=== PATIENT | female | born 2000 | race African-American/Black ===

== ENCOUNTER 2022-06-12 21:39 | Inpatient (IN) | payer OTHER ==
[2022-06-12] MEDS ORDERED: Acetaminophen 650 MG Suppository PR PRN (23:26)
[2022-06-12] MEDS ORDERED: Ondansetron ODT 4 MG TAB PO PRN (23:26)
[2022-06-12] MEDS ORDERED: Acetaminophen 325 MG TAB PO PRN (23:26)
[2022-06-13] MEDS ORDERED: traMADol HCl 50 MG TAB PO PRN (00:28)
[2022-06-13] MEDS ORDERED: Fentanyl 100 MCG/2 ML VIAL SLOW IVP PRN (00:29)
[2022-06-13] MEDS: fentaNYL 50 mcg/mL 1 mL Vial SLOW IVP PRN ×2 (00:55→05:13)
[2022-06-13] MEDS: metroNIDAZOLE 500 MG in Premix Bag 1 BAG IVPB SCH ×3 (02:56→19:50)
[2022-06-13] MEDS ORDERED: cefTRIAXone\\ROCEPHIN 1 GM in Sodium Chloride 0.9% 100 ML IVPB SCH (03:00)
[2022-06-13 05:53] LABS: #Lymphocytes 1.2 thou/uL (1.20-3.40); #Monocytes 1.5 thou/uL (0.11-0.59); %Basophils 0.1 % (0.0-1.0); %Eosinophils 0.4 % (0.0-10.0); %Monocytes 12.9 % (0.0-10.0); %Neutrophils 76.7 % (42.0-75.0); Hemoglobin 11.4 g/dL (12.0-16.0); Mean Corpuscular HGB CONC 32.1 g/dL (32.0-36.0); Mean Corpuscular Hemoglobin 28.8 pg (27.0-31.0); Mean Corpuscular Volume 89.9 fl (78.0-98.0); Mean Platelet Volume 13.7 fL (7.4-10.4); Platelet Count 38 10x3/uL (130-400); RBC Distribution Width 11.7 % (11.5-14.5); Red Blood Cell (RBC) Count 3.94 mill/uL (4.20-5.40); White Blood Cell (WBC) Count 11.7 10x3/uL (4.8-10.8)
[2022-06-13 06:09] LABS: Anion Gap 11 mmol/L (10-20); BUN (Urea Nitrogen) Less than 4 mg/dL (7.0-18.7); Calc. Creatinine Clearance 131 mL/min (70-130); Calcium 7.7 mg/dL (7.8-10.44); Carbon Dioxide 19 mmol/L (22-29); Chloride 110 mmol/L (98-107); Estimated GFR 129; Glucose 113 mg/dL (70-105); Potassium 4.1 mmol/L (3.5-5.1); Sodium 136 mmol/L (136-145)
[2022-06-13] MEDS ORDERED: oxyCODONE 5 MG TAB PO PRN (11:23)
[2022-06-13] MEDS ORDERED: Morphine 2 MG/ML VIAL SLOW IVP SCH (11:30)
[2022-06-13] MEDS: Lactated Ringer's 1,000 ML IV SCH ×2 (11:36→21:32)
[2022-06-13 16:14] LABS: Campy jejuni + coli by PCR Negative (Negative); STEC Shiga Toxin 1+2 Negative (Negative); Salmonella spp. by PCR Negative (Negative); Shigella spp + EIEC by PCR Negative (Negative)
[2022-06-13] MEDS: Acetaminophen 500 MG TAB PO PRN (19:51)
[2022-06-13] MEDS: Hyoscyamine SL 0.125 MG TAB PO PRN (19:51)
[2022-06-13] MEDS: Ondansetron PF 4 MG/2 ML Vial IVP PRN (21:32)
[2022-06-14] MEDS: Hyoscyamine SL 0.125 MG TAB PO PRN (02:24)
[2022-06-14 07:48] LABS: ALT (SGPT) 33 U/L (8-55); AST (SGOT) 77 U/L (5-34); Albumin 2.7 g/dL (3.5-5.0); Alkaline Phosphatase 92 U/L (40-110); Anion Gap 13 mmol/L (10-20); BUN (Urea Nitrogen) 4 mg/dL (7.0-18.7); Bilirubin, Total 0.3 mg/dL (0.2-1.2); Calc. Creatinine Clearance 129 mL/min (70-130); Calcium 7.8 mg/dL (7.8-10.44); Carbon Dioxide 20 mmol/L (22-29); Chloride 108 mmol/L (98-107); Estimated GFR 128; Globulin 2.3 g/dL (2.4-3.5); Glucose 83 mg/dL (70-105); Magnesium 1.6 mg/dL (1.6-2.6); Phosphorus 1.8 mg/dL (2.3-4.7); Potassium 3.5 mmol/L (3.5-5.1); Sodium 137 mmol/L (136-145)
[2022-06-14 08:12] LABS: #Eosinphils 0.1 thou/uL (0.0-0.7); #Monocytes 1.1 thou/uL (0.11-0.59); #Neutrophils 6.3 thou/uL (1.40-6.50); %Basophils 0.3 % (0.0-1.0); %Eosinophils 1.3 % (0.0-10.0); %Lymphocytes 20.5 % (21.0-51.0); %Monocytes 11.5 % (0.0-10.0); %Neutrophils 66.4 % (42.0-75.0); Hemoglobin 11.4 g/dL (12.0-16.0); MDiff Complete? YES; Mean Corpuscular HGB CONC 32.7 g/dL (32.0-36.0); Mean Corpuscular Hemoglobin 28.9 pg (27.0-31.0); Mean Corpuscular Volume 88.4 fl (78.0-98.0); Mean Platelet Volume 13.9 fL (7.4-10.4); Platelet Count 34 10x3/uL (130-400); Platelet Morphology Comment Appears Decreased; Polychromasia SLIGHT = 2-3 cells (100X) (0-2/hpf); RBC Distribution Width 11.9 % (11.5-14.5); Red Blood Cell (RBC) Count 3.94 mill/uL (4.20-5.40); White Blood Cell (WBC) Count 9.5 10x3/uL (4.8-10.8)
[2022-06-14] MEDS: Lactated Ringer's 1,000 ML IV SCH ×2 (09:27→20:18)
[2022-06-14] MEDS: Acetaminophen 500 MG TAB PO PRN ×3 (09:27→21:14)
[2022-06-14] MEDS ORDERED: Ondansetron PF 4 MG/2 ML Vial ONE (11:26)
[2022-06-14] MEDS ORDERED: Promethazine HCl 25 MG/ML VIAL IM PRN (11:29)
[2022-06-14] MEDS ORDERED: fentaNYL 50 mcg/mL 1 mL Vial ONE (11:58)
[2022-06-14] MEDS: methylPREDNISolone Sod Succ 40 MG VIAL IVP SCH ×2 (14:43→20:18)
[2022-06-14] MEDS: metroNIDAZOLE 250 MG in Admixture Fee 2 EACH IVPB SCH ×2 (14:43→21:14)
[2022-06-15] MEDS: Lactated Ringer's 1,000 ML IV SCH ×3 (02:35→20:50)
[2022-06-15] MEDS: Ondansetron PF 4 MG/2 ML Vial IVP PRN (02:39)
[2022-06-15] MEDS: Hyoscyamine SL 0.125 MG TAB PO PRN (02:39)
[2022-06-15] MEDS: metroNIDAZOLE 250 MG in Admixture Fee 2 EACH IVPB SCH (06:37)
[2022-06-15] MEDS: methylPREDNISolone Sod Succ 40 MG VIAL IVP SCH ×3 (06:39→20:49)
[2022-06-15 06:51] LABS: Anion Gap 11 mmol/L (10-20); BUN (Urea Nitrogen) Less than 4 mg/dL (7.0-18.7); Calc. Creatinine Clearance 135 mL/min (70-130); Calcium 7.9 mg/dL (7.8-10.44); Carbon Dioxide 21 mmol/L (22-29); Chloride 109 mmol/L (98-107); Estimated GFR 130; Glucose 133 mg/dL (70-105); Potassium 3.7 mmol/L (3.5-5.1); Sodium 137 mmol/L (136-145)
[2022-06-15 07:12] LABS: HBSAB Concentration Less than 8.00 mIU/mL; HBSAg Index 0.24 S/CO (0-0.99); Hep B Core Total Ab Non-Reactive (NonReactive); Hep B Core Total Index 0.13 S/CO (0-0.79); Hep B Surf AB Non-Reactive (NonReactive); Hep B Surf Ag Non-Reactive S/CO (NonReactive); Hep C IgG Ab Non-Reactive S/CO (NonReactive); Hep C Index 0.45 S/CO (0-0.79)
[2022-06-15 07:32] LABS: #Eosinphils 0.1 thou/uL (0.0-0.7); #Lymphocytes 1.4 thou/uL (1.20-3.40); #Monocytes 1.3 thou/uL (0.11-0.59); #Neutrophils 9.3 thou/uL (1.40-6.50); %Basophils 0.2 % (0.0-1.0); %Lymphocytes 11.3 % (21.0-51.0); %Neutrophils 76.5 % (42.0-75.0); Helmet Cells SLIGHT = 2-5 cells (100X) (0-1/hpf); Hemoglobin 11.2 g/dL (12.0-16.0); MDiff Complete? YES; Mean Corpuscular HGB CONC 33.4 g/dL (32.0-36.0); Mean Corpuscular Hemoglobin 28.9 pg (27.0-31.0); Mean Corpuscular Volume 86.5 fl (78.0-98.0); Mean Platelet Volume 12.9 fL (7.4-10.4); Platelet Count 40 10x3/uL (130-400); Platelet Morphology Comment Appears Decreased; Polychromasia SLIGHT = 2-3 cells (100X) (0-2/hpf); RBC Distribution Width 11.9 % (11.5-14.5); Red Blood Cell (RBC) Count 3.88 mill/uL (4.20-5.40); Schistocytes SLIGHT = 2-5 cells (100X) (0-1/hpf); Target Cells SLIGHT = 2-5 cells (100X) (0-1/hpf); White Blood Cell (WBC) Count 12.1 10x3/uL (4.8-10.8)
[2022-06-15] MEDS: Acetaminophen 500 MG TAB PO PRN ×2 (11:11→21:01)
[2022-06-15] MEDS ORDERED: Metoclopramide HCl 10 MG/2 ML VIAL IVP SCH (12:15)
[2022-06-16] MEDS: Acetaminophen 500 MG TAB PO PRN ×2 (05:20→16:19)
[2022-06-16] MEDS: methylPREDNISolone Sod Succ 40 MG VIAL IVP SCH ×4 (05:21→21:38)
[2022-06-16 06:58] LABS: Hemoglobin 11.1 g/dL (12.0-16.0); Mean Corpuscular HGB CONC 33.5 g/dL (32.0-36.0); Mean Corpuscular Hemoglobin 28.9 pg (27.0-31.0); Mean Corpuscular Volume 86.3 fl (78.0-98.0); Red Blood Cell (RBC) Count 3.85 mill/uL (4.20-5.40); White Blood Cell (WBC) Count 13.2 10x3/uL (4.8-10.8)
[2022-06-16 07:16] LABS: Anion Gap 11 mmol/L (10-20); BUN (Urea Nitrogen) Less than 4 mg/dL (7.0-18.7); Calc. Creatinine Clearance 127 mL/min (70-130); Calcium 8.1 mg/dL (7.8-10.44); Carbon Dioxide 21 mmol/L (22-29); Chloride 109 mmol/L (98-107); Estimated GFR 128; Glucose 127 mg/dL (70-105); Potassium 3.6 mmol/L (3.5-5.1); Sodium 137 mmol/L (136-145)
[2022-06-16 07:24] LABS: #Eosinphils 0.1 thou/uL (0.0-0.7); #Lymphocytes 1.9 thou/uL (1.20-3.40); #Monocytes 1.4 thou/uL (0.11-0.59); #Neutrophils 9.8 thou/uL (1.40-6.50); %Basophils 0.1 % (0.0-1.0); %Eosinophils 0.9 % (0.0-10.0); %Lymphocytes 14.4 % (21.0-51.0); %Monocytes 10.6 % (0.0-10.0); %Neutrophils 74.1 % (42.0-75.0); MDiff Complete? YES; Mean Platelet Volume 12.3 fL (7.4-10.4); Platelet Count 40 10x3/uL (130-400); Platelet Morphology Comment Appears Decreased; Polychromasia SLIGHT = 2-3 cells (100X) (0-2/hpf); Target Cells SLIGHT = 2-5 cells (100X) (0-1/hpf)
[2022-06-16] MEDS: Lactated Ringer's 1,000 ML IV SCH ×2 (09:37→15:26)
[2022-06-16] MEDS ORDERED: Heparin 10,000 UNITS/ 10 ML VIAL SLOW IVP SCH (13:30)
[2022-06-16] MEDS ORDERED: Heparin 25,000 units/D5W 500 ML IVPB SCH (13:30)
[2022-06-16 14:08] LABS: Hemoglobin 13.7 g/dL (12.0-16.0); Platelet Count 50 10x3/uL (130-400)
[2022-06-16] MEDS: Heparin 25,000 units/D5W 500 ML IV SCH (15:38)
[2022-06-16] MEDS ORDERED: Magnevist 469MG/ML 20 ML VIAL ONE (16:04)
[2022-06-16 18:02] LABS: Hemoglobin 11.6 g/dL (12.0-16.0); Platelet Count 52 10x3/uL (130-400)
[2022-06-16 18:29] LABS: PTT 51.3 sec (22.9-36.1); Prothrombin Time 23.6 sec (12.0-14.7)
[2022-06-16 18:59] LABS: Fibrinogen 47 mg/dL (253-463)
[2022-06-16 19:34] LABS: Band 3 % (5-11); Lymphocytes 9 % (21-51); Monocytes 8 % (0-10); Neutrophil 80 % (42-75)
[2022-06-16] MEDS: cefTRIAXone\\ROCEPHIN 2 GM in Sodium Chloride 0.9% 100 ML IVPB SCH (19:46)
[2022-06-16 20:39] LABS: INR-International Normal Ratio 1.9; Prothrombin Time 22.9 sec (12.0-14.7)
[2022-06-16 20:40] LABS: PTT 57.6 sec (22.9-36.1)
[2022-06-16 21:01] LABS: D-Dimer Test Greater than 20.00 *mcg/mL (0.27-0.43)
[2022-06-16] MEDS ORDERED: Acetaminophen 500 MG TAB PO PRN (21:25)
[2022-06-16] MEDS: Acetaminophen 325 MG TAB PO PRN (21:36)
[2022-06-17] MEDS: Acetaminophen/Codeine 30-300mg Tablet PO PRN (00:43)
[2022-06-17] MEDS: Lactated Ringer's 1,000 ML IV SCH ×3 (00:46→18:36)
[2022-06-17 04:49] LABS: #Eosinphils 0.2 thou/uL (0.0-0.7); #Lymphocytes 1.9 thou/uL (1.20-3.40); #Monocytes 1.3 thou/uL (0.11-0.59); %Basophils 0.2 % (0.0-1.0); %Eosinophils 1.1 % (0.0-10.0); %Lymphocytes 12.3 % (21.0-51.0); %Monocytes 8.4 % (0.0-10.0); Hemoglobin 10.8 g/dL (12.0-16.0); Mean Corpuscular HGB CONC 32.4 g/dL (32.0-36.0); Mean Corpuscular Hemoglobin 28.2 pg (27.0-31.0); Mean Corpuscular Volume 87.2 fl (78.0-98.0); Mean Platelet Volume 14.3 fL (7.4-10.4); Platelet Count 53 10x3/uL (130-400); RBC Distribution Width 12.2 % (11.5-14.5); Red Blood Cell (RBC) Count 3.83 mill/uL (4.20-5.40); White Blood Cell (WBC) Count 15.3 10x3/uL (4.8-10.8)
[2022-06-17 04:56] LABS: Anion Gap 10 mmol/L (10-20); BUN (Urea Nitrogen) Less than 4 mg/dL (7.0-18.7); Calc. Creatinine Clearance 129 mL/min (70-130); Carbon Dioxide 22 mmol/L (22-29); Chloride 110 mmol/L (98-107); Estimated GFR 128; Glucose 176 mg/dL (70-105); Potassium 3.6 mmol/L (3.5-5.1); Sodium 138 mmol/L (136-145)
[2022-06-17] MEDS: methylPREDNISolone Sod Succ 40 MG VIAL IVP SCH ×3 (05:41→22:05)
[2022-06-17] MEDS: Acetaminophen 325 MG TAB PO PRN ×3 (08:39→19:45)
[2022-06-17] MEDS: Pantoprazole 40 MG VIAL IVP SCH (08:42)
[2022-06-17] MEDS: cefTRIAXone\\ROCEPHIN 2 GM in Sodium Chloride 0.9% 100 ML IVPB SCH (18:35)
[2022-06-17 19:59] LABS: Hemoglobin 9.6 g/dL (12.0-16.0); Platelet Count 45 10x3/uL (130-400)
[2022-06-18] MEDS: Lactated Ringer's 1,000 ML IV SCH ×3 (00:05→13:47)
[2022-06-18] MEDS: Acetaminophen 325 MG TAB PO PRN ×2 (01:12→19:52)
[2022-06-18 05:14] LABS: Anion Gap 9 mmol/L (10-20); BUN (Urea Nitrogen) Less than 4 mg/dL (7.0-18.7); Calc. Creatinine Clearance 140 mL/min (70-130); Calcium 8.1 mg/dL (7.8-10.44); Carbon Dioxide 24 mmol/L (22-29); Chloride 108 mmol/L (98-107); Estimated GFR 132; Glucose 137 mg/dL (70-105); Potassium 3.3 mmol/L (3.5-5.1); Sodium 138 mmol/L (136-145)
[2022-06-18] MEDS: methylPREDNISolone Sod Succ 40 MG VIAL IVP SCH ×3 (05:19→21:25)
[2022-06-18 05:21] LABS: Mean Corpuscular HGB CONC 33.4 g/dL (32.0-36.0); Mean Corpuscular Hemoglobin 29.7 pg (27.0-31.0); Mean Corpuscular Volume 88.7 fl (78.0-98.0); RBC Distribution Width 12.2 % (11.5-14.5); Red Blood Cell (RBC) Count 3.02 mill/uL (4.20-5.40)
[2022-06-18 05:23] LABS: Platelet Count 58 10x3/uL (130-400)
[2022-06-18 05:30] LABS: INR-International Normal Ratio 1.6; Prothrombin Time 19.5 sec (12.0-14.7)
[2022-06-18 05:32] LABS: Fibrinogen 125 mg/dL (253-463)
[2022-06-18 05:36] LABS: D-Dimer Test 17.42 *mcg/mL (0.27-0.43)
[2022-06-18 06:23] LABS: Band 4 % (5-11); Lymphocytes 6 % (21-51); MDiff Complete? YES; Mean Platelet Volume 10.5 fL (7.4-10.4); Monocytes 2 % (0-10); Neutrophil 88 % (42-75); Platelet Count 58 10x3/uL (130-400); Platelet Morphology Comment Appears Decreased; White Blood Cell (WBC) Count 15.7 10x3/uL (4.8-10.8)
[2022-06-18] MEDS ORDERED: INFLIXIMAB-DYYB 600 MG in Sodium Chloride 0.9% 250 ML 250 ML IVPB SCH (06:45)
[2022-06-18] MEDS ORDERED: diphenhydrAMINE 50 MG/ML VIAL IVP SCH (06:45)
[2022-06-18] MEDS ORDERED: INFLIXIMAB-DYYB 600 MG in Sodium Chloride 0.9% 250 ML 190 ML IVPB SCH (08:00)
[2022-06-18] MEDS ORDERED: Acetaminophen 500 MG TAB PO PRN (09:00)
[2022-06-18 09:14] LABS: CMV DNA-PCR Test Negative (Negative)
[2022-06-18] MEDS: Pantoprazole 40 MG VIAL IVP SCH (09:41)
[2022-06-18 14:38] LABS: Hemoglobin 9.7 g/dL (12.0-16.0); Platelet Count 80 10x3/uL (130-400)
[2022-06-18] MEDS: cefTRIAXone\\ROCEPHIN 2 GM in Sodium Chloride 0.9% 100 ML IVPB SCH (17:17)
[2022-06-18 19:59] LABS: Hemoglobin 9.5 g/dL (12.0-16.0); Platelet Count 105 10x3/uL (130-400)
[2022-06-18] MEDS ORDERED: Sodium Chloride 0.9% 1,000 ML IV SCH (21:15)
[2022-06-18 21:37] LABS: Adenovirus F 40-41 Not Detected (Not Detected); Astrovirus Not Detected (Not Detected); Campylobacter by PCR Not Detected (Not Detected); Cryptosporidium Not Detected (Not Detected); Cyclospora cayetanensis Not Detected (Not Detected); Entamoeba histolytica Not Detected (Not Detected); Enteroaggregative E. coli Not Detected (Not Detected); Enteropathogenic E. coli Not Detected (Not Detected); Enterotoxigenic E. coli Not Detected (Not Detected); Giardia lamblia Not Detected (Not Detected); Norovirus GI-GII Not Detected (Not Detected); Plesiomonas shigelloides Not Detected (Not Detected); Rotavirus A Not Detected (Not Detected); Salmonella Not Detected (Not Detected); Sapovirus Not Detected (Not Detected); Shiga-toxin-producing E coli Not Detected (Not Detected); Shigella/Enteroinvasive E coli Not Detected (Not Detected); Vibrio Not Detected (Not Detected); Vibrio cholerae Not Detected (Not Detected); Yersinia enterocolitica Not Detected (Not Detected)
[2022-06-18] MEDS: Acetaminophen/Codeine 30-300mg Tablet PO PRN (22:08)
[2022-06-18] MEDS: Heparin 25,000 units/D5W 500 ML IV SCH (22:44)
[2022-06-19 05:08] LABS: Hemoglobin 9.2 g/dL (12.0-16.0); Mean Corpuscular HGB CONC 33.8 g/dL (32.0-36.0); Mean Corpuscular Hemoglobin 29.9 pg (27.0-31.0); Mean Corpuscular Volume 88.2 fl (78.0-98.0); Mean Platelet Volume 10.9 fL (7.4-10.4); Platelet Count 111 10x3/uL (130-400); RBC Distribution Width 12.4 % (11.5-14.5); Red Blood Cell (RBC) Count 3.06 mill/uL (4.20-5.40)
[2022-06-19 05:10] LABS: INR-International Normal Ratio 1.4; PTT 43.9 sec (22.9-36.1); Prothrombin Time 17.8 sec (12.0-14.7)
[2022-06-19 05:14] LABS: Fibrinogen 104 mg/dL (253-463)
[2022-06-19 05:17] LABS: Anion Gap 11 mmol/L (10-20); BUN (Urea Nitrogen) 5 mg/dL (7.0-18.7); Calc. Creatinine Clearance 127 mL/min (70-130); Calcium 8.2 mg/dL (7.8-10.44); Carbon Dioxide 24 mmol/L (22-29); Chloride 108 mmol/L (98-107); D-Dimer Test 14.02 *mcg/mL (0.27-0.43); Estimated GFR 129; Glucose 140 mg/dL (70-105); Potassium 3.6 mmol/L (3.5-5.1); Sodium 139 mmol/L (136-145)
[2022-06-19 05:37] LABS: Platelet Count 111 10x3/uL (130-400)
[2022-06-19 05:44] LABS: Large Platelets SLIGHT; Lymphocytes 11 % (21-51); MDiff Complete? YES; Metamyelocyte 1 % (0-0); Monocytes 3 % (0-10); Neutrophil 85 % (42-75); Platelet Morphology Comment Appears Decreased; Polychromasia SLIGHT = 2-3 cells (100X) (0-2/hpf); Schistocytes SLIGHT = 2-5 cells (100X) (0-1/hpf); White Blood Cell (WBC) Count 18.4 10x3/uL (4.8-10.8)
[2022-06-19] MEDS: methylPREDNISolone Sod Succ 40 MG VIAL IVP SCH ×3 (06:31→21:24)
[2022-06-19] MEDS ORDERED: DC ALL OTHER HEPARIN PRODUCTS FS SCH (09:15)
[2022-06-19] MEDS ORDERED: Heparin 25,000 units/D5W 500 ML IV SCH (09:15)
[2022-06-19] MEDS: Acetaminophen 325 MG TAB PO PRN ×3 (09:17→20:30)
[2022-06-19] MEDS: traMADol HCl 50 MG TAB PO PRN ×4 (09:46→20:33)
[2022-06-19] MEDS: Pantoprazole 40 MG VIAL IVP SCH (09:48)
[2022-06-19] MEDS ORDERED: ALPRAZolam 0.25 MG TAB PO PRN (12:26)
[2022-06-19 14:07] LABS: Cardiolipin IgA Ab 5.3 APL-U/mL (<14 Negative); Cardiolipin IgG Ab 2.4 GPL-U/mL (<10 Negative); Cardiolipin IgM Ab 1.5 MPL-U/mL (<10 Negative); EliA APS New Method **** NEW METHOD ****
[2022-06-19] MEDS ORDERED: fentaNYL 50 mcg/mL 1 mL Vial SLOW IVP PRN (15:03)
[2022-06-19] MEDS: cefTRIAXone\\ROCEPHIN 2 GM in Sodium Chloride 0.9% 100 ML IVPB SCH (16:54)
[2022-06-19 22:37] LABS: QuantiFERON-TB Gold Plus Indeterminate (Negative)
[2022-06-20 04:47] LABS: Hemoglobin 9.5 g/dL (12.0-16.0); Mean Corpuscular HGB CONC 33.3 g/dL (32.0-36.0); Mean Corpuscular Hemoglobin 29.6 pg (27.0-31.0); Mean Corpuscular Volume 88.8 fl (78.0-98.0); Mean Platelet Volume 9.8 fL (7.4-10.4); Platelet Count 196 10x3/uL (130-400); RBC Distribution Width 12.7 % (11.5-14.5); Red Blood Cell (RBC) Count 3.23 mill/uL (4.20-5.40); White Blood Cell (WBC) Count 30.2 10x3/uL (4.8-10.8)
[2022-06-20 05:00] LABS: Platelet Count 196 10x3/uL (130-400)
[2022-06-20 05:02] LABS: Anion Gap 10 mmol/L (10-20); BUN (Urea Nitrogen) 5 mg/dL (7.0-18.7); Calc. Creatinine Clearance 130 mL/min (70-130); Calcium 8.3 mg/dL (7.8-10.44); Carbon Dioxide 26 mmol/L (22-29); Chloride 103 mmol/L (98-107); Estimated GFR 129; Glucose 134 mg/dL (70-105); Potassium 3.7 mmol/L (3.5-5.1); Sodium 135 mmol/L (136-145)
[2022-06-20 05:04] LABS: INR-International Normal Ratio 1.3; PTT 65.7 sec (22.9-36.1); Prothrombin Time 16.6 sec (12.0-14.7)
[2022-06-20 05:08] LABS: Fibrinogen 103 mg/dL (253-463)
[2022-06-20 05:12] LABS: Band 3 % (5-11); Lymphocytes 10 % (21-51); MDiff Complete? YES; Monocytes 2 % (0-10); Neutrophil 85 % (42-75)
[2022-06-20] MEDS: methylPREDNISolone Sod Succ 40 MG VIAL IVP SCH ×3 (05:57→21:11)
[2022-06-20] MEDS: Acetaminophen 325 MG TAB PO PRN ×3 (05:57→20:41)
[2022-06-20 06:04] LABS: D-Dimer Test 8.33 *mcg/mL (0.27-0.43)
[2022-06-20] MEDS: traMADol HCl 50 MG TAB PO PRN ×3 (07:52→20:39)
[2022-06-20 13:23] LABS: Hemoglobin 9.7 g/dL (12.0-16.0); Platelet Count 212 10x3/uL (130-400)
[2022-06-20 13:32] LABS: Protein C Activity 64 % (78-152)
[2022-06-20] MEDS: cefTRIAXone\\ROCEPHIN 2 GM in Sodium Chloride 0.9% 100 ML IVPB SCH (15:58)
[2022-06-21] MEDS: Acetaminophen 325 MG TAB PO PRN ×3 (03:32→19:00)
[2022-06-21] MEDS: traMADol HCl 50 MG TAB PO PRN (03:33)
[2022-06-21 04:04] LABS: Platelet Count 252 10x3/uL (130-400)
[2022-06-21 04:19] LABS: INR-International Normal Ratio 1.3; Prothrombin Time 16.4 sec (12.0-14.7)
[2022-06-21 04:21] LABS: PTT 83.5 sec (22.9-36.1)
[2022-06-21 04:23] LABS: Fibrinogen 113 mg/dL (253-463)
[2022-06-21 04:25] LABS: Anion Gap 11 mmol/L (10-20); BUN (Urea Nitrogen) 8 mg/dL (7.0-18.7); Calc. Creatinine Clearance 121 mL/min (70-130); Calcium 8.2 mg/dL (7.8-10.44); Carbon Dioxide 24 mmol/L (22-29); Chloride 104 mmol/L (98-107); Estimated GFR 127; Glucose 143 mg/dL (70-105); Potassium 3.7 mmol/L (3.5-5.1); Sodium 135 mmol/L (136-145)
[2022-06-21 04:27] LABS: D-Dimer Test 5.84 *mcg/mL (0.27-0.43)
[2022-06-21 04:53] LABS: Band 1 % (5-11); Hypochromia SLIGHT = 6-15 cells (100X) (0-5/hpf); Lymphocytes 24 % (21-51); MDiff Complete? YES; Mean Corpuscular Hemoglobin 30.2 pg (27.0-31.0); Mean Corpuscular Volume 88.8 fl (78.0-98.0); Mean Platelet Volume 8.9 fL (7.4-10.4); Monocytes 4 % (0-10); Neutrophil 71 % (42-75); Platelet Count 245 10x3/uL (130-400); Platelet Morphology Comment Appears Adequate; Red Blood Cell (RBC) Count 2.97 mill/uL (4.20-5.40); Target Cells SLIGHT = 2-5 cells (100X) (0-1/hpf); White Blood Cell (WBC) Count 22.3 10x3/uL (4.8-10.8)
[2022-06-21] MEDS: methylPREDNISolone Sod Succ 40 MG VIAL IVP SCH ×4 (14:52→23:36)
[2022-06-22] MEDS: Acetaminophen 325 MG TAB PO PRN ×2 (03:40→21:46)
[2022-06-22 06:33] LABS: #Eosinphils 0.1 thou/uL (0.0-0.7); #Lymphocytes 1.6 thou/uL (1.20-3.40); #Monocytes 1.4 thou/uL (0.11-0.59); #Neutrophils 13.9 thou/uL (1.40-6.50); %Eosinophils 0.6 % (0.0-10.0); %Lymphocytes 9.4 % (21.0-51.0); %Monocytes 8.3 % (0.0-10.0); %Neutrophils 81.7 % (42.0-75.0); Hemoglobin 8.3 g/dL (12.0-16.0); Mean Corpuscular HGB CONC 33.1 g/dL (32.0-36.0); Mean Corpuscular Hemoglobin 29.6 pg (27.0-31.0); Mean Corpuscular Volume 89.3 fl (78.0-98.0); Mean Platelet Volume 8.6 fL (7.4-10.4); Platelet Count 253 10x3/uL (130-400); RBC Distribution Width 13.5 % (11.5-14.5); Red Blood Cell (RBC) Count 2.79 mill/uL (4.20-5.40)
[2022-06-22 06:38] LABS: Platelet Count 254 10x3/uL (130-400)
[2022-06-22 06:39] LABS: INR-International Normal Ratio 1.2; PTT 38.2 sec (22.9-36.1); Prothrombin Time 16.1 sec (12.0-14.7)
[2022-06-22 06:40] LABS: D-Dimer Test 3.87 *mcg/mL (0.27-0.43)
[2022-06-22 06:42] LABS: Anion Gap 10 mmol/L (10-20); BUN (Urea Nitrogen) 11 mg/dL (7.0-18.7); Calc. Creatinine Clearance 120 mL/min (70-130); Calcium 8.2 mg/dL (7.8-10.44); Carbon Dioxide 23 mmol/L (22-29); Chloride 108 mmol/L (98-107); Estimated GFR 129; Glucose 130 mg/dL (70-105); Potassium 4.1 mmol/L (3.5-5.1); Sodium 137 mmol/L (136-145)
[2022-06-22 06:43] LABS: Fibrinogen 120 mg/dL (253-463)
[2022-06-22] MEDS ORDERED: predniSONE 20 MG TAB PO SCH (08:00)
[2022-06-22] MEDS ORDERED: Fioricet 325/50/40 mg Tablet PO SCH (12:00)
[2022-06-22 12:03] LABS: Hemoglobin 8.6 g/dL (12.0-16.0); Platelet Count 284 10x3/uL (130-400)
[2022-06-22] MEDS: Fioricet 325/50/40 mg Tablet PO PRN ×2 (18:33→22:51)
[2022-06-23 06:05] LABS: Platelet Count 298 10x3/uL (130-400)
[2022-06-23] MEDS: Acetaminophen 325 MG TAB PO PRN (06:07)
[2022-06-23 06:25] LABS: Band 2 % (5-11); Hemoglobin 8.7 g/dL (12.0-16.0); Hypochromia SLIGHT = 6-15 cells (100X) (0-5/hpf); Lymphocytes 19 % (21-51); MDiff Complete? YES; Mean Corpuscular HGB CONC 33.5 g/dL (32.0-36.0); Mean Corpuscular Volume 89.4 fl (78.0-98.0); Mean Platelet Volume 8.1 fL (7.4-10.4); Monocytes 17 % (0-10); Neutrophil 62 % (42-75); Platelet Count 300 10x3/uL (130-400); Platelet Morphology Comment Appears Adequate; Polychromasia SLIGHT = 2-3 cells (100X) (0-2/hpf); RBC Distribution Width 13.4 % (11.5-14.5); Target Cells SLIGHT = 2-5 cells (100X) (0-1/hpf)
[2022-06-23 06:27] LABS: D-Dimer Test 3.89 *mcg/mL (0.27-0.43); INR-International Normal Ratio 1.2; Prothrombin Time 15.3 sec (12.0-14.7)
[2022-06-23 06:31] LABS: Fibrinogen 141 mg/dL (253-463)
[2022-06-23 06:33] LABS: PTT 120.8 sec (22.9-36.1)
[2022-06-23 06:39] LABS: Anion Gap 11 mmol/L (10-20); BUN (Urea Nitrogen) 12 mg/dL (7.0-18.7); Calc. Creatinine Clearance 109 mL/min (70-130); Calcium 8.3 mg/dL (7.8-10.44); Carbon Dioxide 23 mmol/L (22-29); Chloride 106 mmol/L (98-107); Estimated GFR 127; Glucose 107 mg/dL (70-105); Potassium 3.3 mmol/L (3.5-5.1); Sodium 137 mmol/L (136-145)
[2022-06-23] MEDS ORDERED: Potassium Chloride 20 MEQ TAB PO SCH (07:30)
[2022-06-23] MEDS: predniSONE 20 MG TAB PO SCH (08:12)
[2022-06-23] MEDS: Fioricet 325/50/40 mg Tablet PO PRN ×2 (10:25→19:41)
[2022-06-23] MEDS: Cyclobenzaprine 10 MG TAB PO PRN (10:29)
[2022-06-23] MEDS: Acetaminophen/Codeine 30-300mg Tablet PO PRN (18:08)
[2022-06-23] MEDS: Apixaban 5 MG TAB PO SCH (22:28)
[2022-06-24] MEDS: Fioricet 325/50/40 mg Tablet PO PRN ×4 (00:53→23:46)
[2022-06-24 05:53] LABS: Anion Gap 11 mmol/L (10-20); BUN (Urea Nitrogen) 13 mg/dL (7.0-18.7); Calc. Creatinine Clearance 111 mL/min (70-130); Calcium 8.8 mg/dL (7.8-10.44); Carbon Dioxide 24 mmol/L (22-29); Chloride 105 mmol/L (98-107); Estimated GFR 128; Glucose 100 mg/dL (70-105); Potassium 3.7 mmol/L (3.5-5.1); Sodium 136 mmol/L (136-145)
[2022-06-24 06:33] LABS: Hemoglobin 8.2 g/dL (12.0-16.0); Mean Corpuscular HGB CONC 33.1 g/dL (32.0-36.0); Mean Corpuscular Hemoglobin 29.3 pg (27.0-31.0); Mean Corpuscular Volume 88.5 fl (78.0-98.0); Platelet Count 326 10x3/uL (130-400); RBC Distribution Width 13.6 % (11.5-14.5); White Blood Cell (WBC) Count 18.7 10x3/uL (4.8-10.8)
[2022-06-24 06:37] LABS: Elliptocytes SLIGHT = 2-5 cells (100X) (0-1/hpf); Lymphocytes 44 % (21-51); MDiff Complete? YES; Monocytes 1 % (0-10); Myelocyte 1 % (0-0); Neutrophil 54 % (42-75); Platelet Morphology Comment Appears Adequate; Target Cells SLIGHT = 2-5 cells (100X) (0-1/hpf)
[2022-06-24] MEDS: predniSONE 20 MG TAB PO SCH (09:21)
[2022-06-24] MEDS: Apixaban 5 MG TAB PO SCH ×2 (09:23→20:32)
[2022-06-24] MEDS: Cyclobenzaprine 10 MG TAB PO PRN (17:38)
[2022-06-25] MEDS: Apixaban 5 MG TAB PO SCH (09:12)
[2022-06-25] MEDS: predniSONE 20 MG TAB PO SCH (09:12)
[2022-06-25 10:59] VITALS: BMI 20.7
[2022-06-25 12:50] LABS: #Eosinphils 0.1 thou/uL (0.0-0.7); #Lymphocytes 2.3 thou/uL (1.20-3.40); #Monocytes 0.8 thou/uL (0.11-0.59); #Neutrophils 15.2 thou/uL (1.40-6.50); %Basophils 0.2 % (0.0-1.0); %Eosinophils 0.4 % (0.0-10.0); %Lymphocytes 12.3 % (21.0-51.0); %Monocytes 4.6 % (0.0-10.0); %Neutrophils 82.5 % (42.0-75.0); Hemoglobin 10.2 g/dL (12.0-16.0); Mean Corpuscular HGB CONC 33.7 g/dL (32.0-36.0); Mean Corpuscular Volume 89.1 fl (78.0-98.0); Platelet Count 407 10x3/uL (130-400); RBC Distribution Width 13.7 % (11.5-14.5); Red Blood Cell (RBC) Count 3.39 mill/uL (4.20-5.40); White Blood Cell (WBC) Count 18.4 10x3/uL (4.8-10.8)
[2022-06-25 16:06] VITALS: BP 116/80; TEMP 98.1
[2022-06-25] MEDS: Fioricet 325/50/40 mg Tablet PO PRN (17:07)
[2022-06-28 15:27] LABS: HEX PHOS LA Tube 2 44.3 SEC; Hexagonal Phospholipid Neut 5.7 SEC (0-8.0)
== END 2022-06-25 18:38 | disposition home or self-care (01) | DRG 385 ==
LOC: SURG A 22:26 → EDBD 22:26 → CCU 06-16 14:52 → NEURO 06-21 16:14
PROVIDERS: ADMIT Student in an Organized Health Care Education/Training Program; ATTEND Hospitalist
PROC: 0DBK8ZX Excision of Ascending Colon, Via Natural or Artificial Opening Endoscopic, Diagnostic (ICD-10-PCS; 2022-06-14)
PROC: 0DBL8ZX Excision of Transverse Colon, Via Natural or Artificial Opening Endoscopic, Diagnostic (ICD-10-PCS; 2022-06-14)
PROC: 0DBH8ZX Excision of Cecum, Via Natural or Artificial Opening Endoscopic, Diagnostic (ICD-10-PCS; 2022-06-14)
PROC: 30233M1 Transfusion of Nonautologous Plasma Cryoprecipitate into Peripheral Vein, Percutaneous Approach (ICD-10-PCS; principal; 2022-06-17)
PROC: XW033H6 Introduction of Other New Technology Monoclonal Antibody into Peripheral Vein, Percutaneous Approach, New Technology Group 6 (ICD-10-PCS; 2022-06-18)
DX: K51.011 Ulcerative (chronic) pancolitis with rectal bleeding (principal); D65 Disseminated intravascular coagulation [defibrination syndrome]; I60.9 Nontraumatic subarachnoid hemorrhage, unspecified; I67.6 Nonpyogenic thrombosis of intracranial venous system; D62 Acute posthemorrhagic anemia; K59.00 Constipation, unspecified; K60.2 Anal fissure, unspecified; R51.9 Headache, unspecified; K51.013 Ulcerative (chronic) pancolitis with fistula; E86.0 Dehydration; Z88.6 Allergy status to analgesic agent; Z79.899 Other long term (current) drug therapy; Z83.79 Family history of other diseases of the digestive system
CPT/HCPCS: 36415; 36430; 70450; 70553; 71045; 80048; 80053; 83010; 83090; 83615; 83630; 83735; 84100; 84443; 85014; 85018; 85025; 85049; 85060; 85300; 85303; 85305; 85307; 85362; 85379; 85384; 85598; 85610; 85652; 85730; 86140; 86147; 86480; 86704; 86706; 86803; 86850; 86900; 86901; 87040; 87324; 87340; 87449; 87497; 87505; 87507; 88305; 88341; 88342; A9579; C9113; J0696; J1200; J1644; J1956; J2272; J2405; J2765; J2920; J3010; J3490; J7050; J7120; J7512; P9012; Q5103